=== PATIENT | female | born 1960 | race Caucasian/White ===

== ENCOUNTER → 2017-01-29 | Outpatient (CLI) | payer BC | LOC: WI 09:22 | PROVIDERS: ATTEND Nurse Practitioner | DX: M25.571 Pain in right ankle and joints of right foot (principal); M19.071 Primary osteoarthritis, right ankle and foot; M81.0 Age-related osteoporosis without current pathological fracture | CPT/HCPCS: 77080 ==

== ENCOUNTER → 2017-02-20 | Outpatient (CLI) | payer BC ==
--- NOTE | 2017-02-21 16:40 | XCELERA REPORT ---
[address] [address] Lower Extremity Arterial Evaluation Name: JAC CAIN Age: 56 yrs Gender: Female : 1960 Patient Status: Outpatient Patient Location: Study Date: 02/20/2017 03:08 PM Procedure: A color flow and duplex scan of the lower extremity arteries was performed bilaterally with velocity and waveform analysis. Reason For Study: PVD Ordering Physician: DONNY REID Performed By: Siva Luna Measurements and Calculations Right Left XEROX MACHINE MECHANIC PSV 154.2 166.8 cm/sec Prox PFA PSV -93.0 -75.1 cm/sec Dist SFA PSV -99.3 -116.9 cm/sec Dist Pop A PSV 83.0 68.1 cm/sec Dist KEEGAN PSV 76.8 65.3 cm/sec Dist ASSISTED LIVING CARE MANAGER PSV 63.7 53.1 cm/sec Will Pedis PSV 97.4 71.5 cm/sec Right Side Arterial Evaluation Normal velocity and triphasic waveforms noted from the Common Femoral artery to the infrageniculate vessels. 0 % stenosis noted. Ankle Brachial index is 1.07. PPG's are multiphasic, dampened, mostly in the first digit. Left Side Arterial Evaluation Normal velocity and triphasic waveforms noted from the Common Femoral artery to the Popliteal artery. Biphasic in the Deep Femoral, and in the infrageniculate vessels. 0-19% stenosis at the Deep Femoral and infrageniculate arteries. Ankle Brachial index is 1.02. PPG's are multiphasic, adequate amplitude. Interpretation Summary No hemodynamically significant lesions in the right lower extremity only, on duplex imaging, at rest. Mild hemodynamically significant lesions in the left lower extremity only, on duplex imaging, at rest. : DONNY REID > Lamont Craig
== END ==
LOC: SP 14:56
PROVIDERS: ATTEND Podiatrist Foot & Ankle Surgery
DX: I73.9 Peripheral vascular disease, unspecified (principal)
CPT/HCPCS: 93925

== ENCOUNTER → 2017-04-02 | Outpatient (CLI) | payer BC ==
--- NOTE | 2017-04-02 11:58 | RADIOLOGY REPORT (SQ) ---
EXAM DESCRIPTION: VENOUS UNILATERAL LOWER COMPLETED DATE/TIME: 04/02/2017 11:48 am REASON FOR STUDY: M79.604 M79.604 PAIN IN RIGHT LEG COMPARISON: None. TECHNIQUE: Dynamic and static magaña scale and color images acquired of the right leg venous system. S elected spectral images acquired with additional compression and augmentation maneuvers. The contrala teral common femoral vein and saphenofemoral junction were also imaged. Images stored on PACS. LIMITATIONS: None. FINDINGS: COMMON FEMORAL: Normal phasicity, compression and augmentation. No visualized echogenic ma terial on magaña scale. No defects on color images. FEMORAL: Normal compression and augmentation. No visualized echogenic material on magaña scale. No defe cts on color images. POPLITEAL: Normal compression, augmentation. No visualized echogenic material on magaña scale. No defec ts on color images. CALF VESSELS: Normal compression, augmentation. No visualized echogenic material on magaña scale. No de fects on color images. GSV and SSV: Normal compression, augmentation. No visualized echogenic material on magaña scale. No def ects on color images. ANY DEEP VENOUS INSUFFICIENCY: Not evaluated. ANY EVIDENCE OF POPLITEAL CYST: No. OTHER: No other significant finding. CONTRALATERAL COMMON FEMORAL VEIN AND SAPHENOFEMORAL JUNCTION: Normal phasicity, compression and augmentation. No visualized echogenic material on magaña scale. No de fects on color images. IMPRESSION: NO EVIDENCE DVT OR SVT IN THE RIGHT LEG. TECHNICAL DOCUMENTATION: JOB ID: [id number]- All Rights Reserved
== END ==
LOC: SP 10:45
PROVIDERS: ATTEND Surgery
DX: M79.604 Pain in right leg (principal)
CPT/HCPCS: 93971

== ENCOUNTER → 2017-05-14 | Outpatient (CLI) | payer BC ==
--- NOTE | 2017-05-16 05:57 | EKG REPORT ---
SEVERITY:- NORMAL ECG - SINUS RHYTHM : Confirmed by: Rivka Selby MD 16-May-2017 05:56:33
== END ==
LOC: OD 16:22
PROVIDERS: ATTEND Nurse Practitioner
DX: G35 Multiple sclerosis (principal)
CPT/HCPCS: 93005; 93010